=== PATIENT | male | born 1980 | race Caucasian/White ===

== ENCOUNTER 2017-09-03 08:34 | Emergency (ER) | payer OTHER ==
[2017-09-03 08:39] VITALS: TEMP 98
[2017-09-03] MEDS ORDERED: IBUPROFEN 600 MG TAB PO STA (08:44)
--- NOTE | 2017-09-03 08:45 | ED ---
General Adult HPI - General Chief complaint: Wound/Laceration Stated complaint: Left hand Laceration-[facility] Time Seen by Provider: 09/03/17 08:41 Source: patient, RN notes reviewed Mode of arrival: ambulatory Limitations: no limitations - History of Present Illness Initial comments: 37-year-old male presents to the emergency Department chief complaint of left hand laceration. Patient was cut by a saw at work. He does state his tetanus is up-to-date. He states it goes across the palm of his hand. Patient denies any weakness to the hand. Patient was concerned due to the cut so he thought that he should be evaluated.Patient denies any recent fever, chills, shortness of breath, chest pain, back pain, abdominal pain, nausea vomiting, numbness or tingling, dysuria or hematuria, constipation or diarrhea, headaches or visual changes, or any other current symptoms. - Related Data Home Medications Medication Instructions Recorded Confirmed No Known Home Medications [No 09/03/17 09/03/17 Known Home Medications] Allergies Allergy/AdvReac Type Severity Reaction Status Date / Time No Known Allergies Allergy Verified 09/03/17 09:09 Review of Systems ROS Statement: Those systems with pertinent positive or pertinent negative responses have been documented in the HPI. ROS Other: All systems not noted in ROS Statement are negative. Past Medical History Past Medical History: No Reported History History of Any Multi-Drug Resistant Organisms: None Reported Past Surgical History: No Surgical Hx Reported Past Psychological History: No Psychological Hx Reported Smoking Status: Current every day smoker Past Alcohol Use History: Occasional Past Drug Use History: None Reported General Exam - General Exam Comments Initial Comments: General: The patient is awake and alert, in no distress, and does not appear acutely ill. Neck: The neck is supple, there is no tenderness. Cardiovascular: There is a regular rate and rhythm. No murmur, rub or gallop is appreciated. Respiratory: Lungs are clear to auscultation, respirations are non-labored, breath sounds are equal. No wheezes, stridor, rales, or rhonchi. Musculoskeletal: Sensation intact with 2+ pulses throughout the left upper extremity. Full range of motion of left wrist and left hand. Patient does appear to have a 5 cm laceration along the base of the left hand. 2+ pulses throughout. 5 out of 5 muscle strength testing throughout. Neurological: CN II-XII intact, There are no obvious motor or sensory deficits. Coordination appears grossly intact. Speech is normal. Skin: Skin is warm and dry and no rashes or lesions are noted. Psychiatric: Normal mood and affect. Limitations: no limitations Course Vital Signs 09/03/17 08:37 Temperature 98.0 F Pulse Rate 66 Respiratory 20 Rate Blood Pressure 163/106 O2 Sat by Pulse 98 Oximetry Procedures - Procedures Initial comment: The skin was anesthetized with 1% lidocaine. The laceration was then cleansed with Betadine and irrigated with normal saline. The wound was inspected, and there was no evidence of injury to deep structures. No foreign body was noted in the wound. A total of 16 skin sutures were placed utilizing 5-0 nylon to a 9 cm laceration to the palm of the left hand Medical Decision Making - Medical Decision Making 37-year-old male presents to the emergency department with chief complaint of left hand laceration. At this time patient went suture repair. We discussed care follow-up return parameters. This time x-ray does show a possible foreign body however this does not appear to correlate with the wound. We did thoroughly clean the area. We discussed follow-up return parameters. Patient stated he understood all questions have been answered. We discussed risk of infection. This time he will be discharged. - Radiology Data Radiology results: report reviewed, image reviewed Disposition Clinical Impression: Laceration of left hand Disposition: HOME SELF-CARE Condition: Stable Instructions: Laceration (ED), Care For Your Stitches (ED) Additional Instructions: Please use medication as discussed. Please follow up with family doctor if symptoms have not improved over the next two days. Please return to the emergency room if your symptoms increase or worsen or for any other concerns. Please return to the emergency room in 8-10 days to have sutures removed. Please leave wound covered for the first 24-48 hours and then leave open to air after that time. Please use clean soap and water to clean the suture area to prevent scabbing over the top of your sutures. Please watch for any signs of infection which may include but not limited to increased pain, swelling, redness , fever or chills. Please return to the emergency room if any signs of infection do occur. Please return to the emergency room for any other concerns or complications. Referrals: Maykel Car DO [Primary Care Provider] - 1-2 days Time of Disposition: 09:43
--- NOTE | 2017-09-03 09:12 | XR ---
EXAMINATION TYPE: XR hand complete LT DATE OF EXAM: 09/03/2017 CLINICAL HISTORY: Laceration injury with pain TECHNIQUE: Frontal, lateral and oblique images of the left hand are obtained. COMPARISON: None. FINDINGS: There is no acute fracture/dislocation evident in the left hand. The joint spaces in the l eft hand appear within normal limits. Only seen on frontal view there is 3 mm linear density in the p roximal diaphysis radial aspect of second metacarpal. IMPRESSION: There is no acute fracture or dislocation in the left hand. Possible artifact versus 3 m m radiodense soft tissue foreign body, correlate clinically with level of laceration.
[2017-09-03 09:56] VITALS: BP 147/100; PULSE 59; RESP 18
== END 2017-09-03 09:56 | disposition home or self-care (01) ==
LOC: EC 08:34
DX: S61.412A Laceration without foreign body of left hand, initial encounter (principal); F17.200 Nicotine dependence, unspecified, uncomplicated; W31.9XXA Contact with unspecified machinery, initial encounter; Y99.0 Civilian activity done for income or pay
CPT/HCPCS: 12004; 99283

== ENCOUNTER → 2024-09-21 | Outpatient (CLI) | payer BC ==
--- NOTE | 2024-09-21 13:36 | XR ---
EXAMINATION TYPE: XR chest 2V DATE OF EXAM: 09/21/2024 11:21 AM COMPARISON: None CLINICAL INDICATION: Male, 44 years old with history of R13.10 DYSPHAGIA, shortness of breath after C OVID TECHNIQUE: Frontal and lateral views FINDINGS: The cardiomediastinal silhouette, aorta, and pulmonary vasculature are within normal limits. Lungs an d pleural spaces are clear. IMPRESSION: No acute cardiopulmonary process. [facility], , 09/21/2024 1:34 PM
== END | disposition home or self-care (01) ==
LOC: RADXRMAIN 11:11
PROVIDERS: ATTEND Internal Medicine
DX: U09.9 Post COVID-19 condition, unspecified (principal)
CPT/HCPCS: 71046

== ENCOUNTER → 2024-10-07 | Outpatient (CLI) | payer BC ==
--- NOTE | 2024-10-07 17:23 | CT ---
EXAMINATION TYPE: CT angio chest DATE OF EXAM: 10/07/2024 4:59 PM COMPARISON: Chest radiograph from 09/21/2024. CLINICAL INDICATION: Male, 44 years old with history of R79.1 ABNORMAL COAGULATION PROFILE; Abnormal coagulation profile. R/O PE. Shortness of breath. TECHNIQUE/CONTRAST: CTA scan of the thorax is performed with IV Contrast, patient injected with 100 ml mL of Isovue 370, MIP images are created and reviewed these are created on a separate workstation.. CT DLP: 255.8 mGycm, Automated exposure control for dose reduction was used. FINDINGS: Lungs/Pleura: No evidence of focal consolidation, pleural effusion or pneumothorax. Airway: Large airways are patent. Heart: Heart is within normal limits for size. Vasculature: There is no evidence for a filling defect within the pulmonary vasculature to suggest ac [place] pulmonary embolism. The pulmonary artery is of normal size. Mediastinum: No gross evidence of adenopathy. Musculoskeletal: No acute osseous abnormalities Soft Tissues/lymph nodes: Unremarkable. Lower neck: No significant findings. Upper Abdomen: No significant findings. IMPRESSION: No evidence of pulmonary embolism. Follow up recommendations for incidental pulmonary nodules, if there are any, are per [employer] or [employer]. https://radiopaedia.org/articles/mstbvvsdpv-fdaekwe-ptivzutul-xglpvk-lckdmbyhvfojwmt-[email or web address]?lang=us [facility], , 10/07/2024 5:20 PM
== END | disposition home or self-care (01) ==
LOC: RADCTMAIN 16:23
PROVIDERS: ATTEND Internal Medicine
DX: R06.02 Shortness of breath (principal); R79.1 Abnormal coagulation profile
CPT/HCPCS: 71275; Q9967